=== PATIENT | female | born 1985 | race Caucasian/White ===

== ENCOUNTER 2016-03-10 18:32 | Emergency (ER) | payer OTHER ==
[2016-03-10 20:40] VITALS: BP 138/80
[2016-03-10] MEDS ORDERED: Naproxen TAB* 250 MG PO ONE (21:29)
[2016-03-10] MEDS ORDERED: oxyCODONE/Acetamin 5/325 MG* TAB PO ONE (21:30)
[2016-03-10] MEDS ORDERED: Ondansetron INJ* 2 MG/ML VIAL IV ONE (21:47)
[2016-03-10] MEDS ORDERED: Famotidine IV* 10 MG/ML 2 ML (20 mg) IV ONE (21:47)
[2016-03-10] MEDS ORDERED: NS 0.9% 1000 ML* 2,000 ML IV ONE (21:47)
--- NOTE | 2016-03-12 19:22 | ED ---
Lower Extremity - HPI Summary HPI Summary: Patient presents to ED with complaint of bruising to her buttocks after falling on a stair last evening. She is walking OK and able to bear weight. She comes in today because the bruising had spread, and she wants to make sure nothing more concerning is going on. She states she may have twisted her ankle as well. Denies LOC. Denies hitting her head. Denies any light headedness prior to the fall and states the stairs were slippery. - History of Current Complaint Chief Complaint: EDGeneral Stated Complaint: FALL/HIP AND ANKLE PAIN Time Seen by Provider: 03/10/16 21:13 Hx Obtained From: Patient Hx Last Menstrual Period: 05/25/14 Onset of Pain: Immediate Onset/Duration: Minutes Severity Initially: Moderate Severity Currently: Moderate Pain Intensity: 5 Pain Scale Used: 0-10 Numeric Timing: Constant Location: Is Discrete @ - L buttocks Character Of Pain: Dull, Aching Associated Signs And Symptoms: Positive: Bruising Aggravating Factor(s): Standing Alleviating Factor(s): Rest Able to Bear Weight: Yes - Risk Factors Gout Risk Factors: Negative DVT Risk Factors: Negative Septic Arthritis Risk Factor: Negative - Allergies/Home Medications Allergies/Adverse Reactions: Allergies Allergy/AdvReac Type Severity Reaction Status Date / Time Amoxicillin Allergy Severe Hives Verified 03/10/16 18:44 Sulfa Antibiotics Allergy Unknown See Comment Verified 03/10/16 18:44 PMH/Surg Hx/FS Hx/Imm Hx Previously Healthy: Yes Endocrine/Hematology History: Reports: Hx Thyroid Disease Cardiovascular History: Denies: Hx Congenital Heart Disease, Hx Congestive Heart Failure, Hx Rheumatic Fever, Hx Valvular Heart Disease Respiratory History: Denies: Hx Asthma, Hx Pulmonary Edema History: Reports: Other Problems/Disorders - HERPES- LAST OUTBREAK 5 YRS; heart shaped uterus Neurological History: Reports: Hx Seizures - Surgical History Surgery Procedure, Year, and Place: vulvodynia surgery 2009 Infectious Disease History: No Infectious Disease History: Denies: Hx Clostridium Difficile, Hx Hepatitis, Hx Human Immunodeficiency Virus (HIV), Hx of Known/Suspected MRSA, Hx Shingles, Hx Tuberculosis, Hx Known/ Suspected VRE, Hx Known/Suspected VRSA, History Other Infectious Disease, Traveled Outside the [place] in Last 30 Days - Family History Known Family History: Positive: None - Social History Occupation: Unemployed Lives: With Family Alcohol Use: None Substance Use Type: Reports: None Smoking Status (MU): Former Smoker Type: Cigarettes Amount Used/How Often: 1/2 ppd Length of Time of Smoking/Using Tobacco: 10 years Have You Smoked in the Last Year: No Review of Systems Constitutional: Negative Eyes: Negative Cardiovascular: Negative Respiratory: Negative Positive: Arthralgia, Myalgia Positive: Bruising - over L buttocks Neurological: Negative Psychological: Normal All Other Systems Reviewed And Are Negative: Yes Physical Exam Triage Information Reviewed: Yes Vital Signs On Initial Exam: Initial Vitals Temp Pulse Resp BP Pulse Ox 98.9 F 92 18 149/81 98 03/10/16 18:44 03/10/16 18:44 03/10/16 18:44 03/10/16 18:44 03/10/16 18:44 Vital Signs Reviewed: Yes Appearance: Positive: Well-Appearing, No Pain Distress, Well-Nourished Skin: Positive: Warm, Skin Color Reflects Adequate Perfusion, Other - echymossis over L buttocks Head/Face: Positive: Normal Head/Face Inspection Eyes: Positive: Normal, EOMI, DEWAYNE Neck: Positive: Supple, Nontender Respiratory/Lung Sounds: Positive: Clear to Auscultation Cardiovascular: Positive: Normal, Pulses are Symmetrical in both Upper and Lower Extremities Musculoskeletal: Positive: Normal, Strength/ROM Intact Neurological: Positive: Normal, Sensory/Motor Intact, Normal Gait, Speech Normal Psychiatric: Positive: Normal AVPU Assessment: Alert Diagnostics - Vital Signs Vital Signs Temp Pulse Resp BP Pulse Ox 03/10/16 20:40 98.1 F 91 18 138/80 100 03/10/16 18:44 98.9 F 92 18 149/81 98 - Laboratory Lab Statement: Any lab studies that have been ordered have been reviewed, and results considered in the medical decision making process. Lower Extremity Course/Dx - Course Course Of Treatment: Patient with normal gait. Pain when ambulating which is discrete at L buttocks. No midline spine tenderness, no tailbone pain. Patient dc'd home with return precautions and some pain management. - Diagnoses Differential Diagnosis/HQI/PQRI: Positive: Contusion, Sprain, Strain Provider Diagnoses: Contusion Discharge - Discharge Plan Condition: Stable Disposition: HOME Prescriptions: Ibuprofen TAB* [Motrin TAB* 800 MG] 800 mg PO Q6H #20 tab oxyCODONE/Acetamin 5/325 MG* [Percocet 5/325 TAB*] 1 tab PO Q4H PRN #15 tab MDD 6 PRN Reason: Pain Patient Education Materials: Oxycodone/Acetaminophen (By mouth), Contusion in Adults (ED) Referrals: No Primary Care Phys,NOPCP [Primary Care Provider] - Additional Instructions: Take Oxycodone and Motrin on opposite schedules for relief of pain and inflammation. warm heat pads to the bottom area will help heal the area and promote blood flow. ice to the ankle will help with inflammation. Images - Images Full Body (No Head): 1 - ecchymosis
== END 2016-03-10 22:05 | disposition home or self-care (01) ==
LOC: ED 18:32
DX: S30.0XXA Contusion of lower back and pelvis, initial encounter (principal); W19.XXXA Unspecified fall, initial encounter; Y92.9 Unspecified place or not applicable; Z87.891 Personal history of nicotine dependence; Z88.0 Allergy status to penicillin; Z88.2 Allergy status to sulfonamides
CPT/HCPCS: 99282; A9270-GY

== ENCOUNTER 2016-10-25 14:57 | Inpatient (IN) | payer OTHER ==
[2016-10-25 15:52] LABS: Urine Bilirubin Negative (Negative); Urine Glucose Negative (Negative); Urine Nitrite Negative (Negative)
[2016-10-25 16:13] LABS: ROM Internal QC QC Line Present
[2016-10-25 17:10] LABS: Hematocrit 35 % (35-47); Hemoglobin 12.1 g/dl (12.0-16.0); Mean Corpuscular HGB Conc 35 g/dl (31-36); Mean Corpuscular Hemoglobin 32 pg (27-31); Mean Corpuscular Volume 93 fL (80-97); Mean Platelet Volume 8 um3 (7.4-10.4); Red Blood Count 3.76 10^6/ul (4.0-5.4); Red Cell Distribution Width 13 % (10.5-15); White Blood Count 12.8 10^3/ul (3.5-10.8)
[2016-10-25] MEDS ORDERED: Azithromycin TAB* 250 MG PO ONE (17:24)
[2016-10-25] MEDS ORDERED: Betamethasone INJ* 6 MG/ML 5 ML VIAL (30 MG) ONE (17:35)
--- NOTE | 2016-10-25 18:00 | RAD ---
INDICATION: Limited evaluation. Premature rupture of membranes. Assess CÉSAR and weight. COMPARISON: September 26, 2014 TECHNIQUE/FINDINGS: Limited transabdominal imaging shows a single intrauterine gestation in breech presentation with the head to the left. There is movement and there is confirmation of cardiac activity of 132 beats for minute. The amniotic fluid index measures 6.5. The cervix is closed measuring 4.7 cm. The estimated gestational age based on biparietal diameter, head circumference, abdominal circumference, and femur length corresponds to 30 weeks 1 day, 32 weeks 0 day, 29 weeks 5 days, and 33 weeks 2 days resulting a composite value of 31 weeks 2 days. The weight is 3 lbs. 12 oz. IMPRESSION: INTRAUTERINE GESTATION WITH CONFIRMATION OF CARDIAC ACTIVITY AND WITH ESTIMATED AGE OF 31 WEEKS 2 DAYS. THE ESTIMATED WEIGHT IS 3 LBS. 12 OZ. THE AMNIOTIC FLUID INDEX MEASURES 6.5.
[2016-10-25] MEDS: ValACYclovir (*) 500 MG TAB PO SCH (18:25)
[2016-10-25] MEDS: ceFAZolin 1 GM VIAL(*) 1 GM in NS 0.9% 50 ML* 50 ML IVPB SCH (18:25)
[2016-10-25] MEDS: Betamethasone INJ* 6 MG/ML 5 ML VIAL (30 MG) IM SCH (19:37)
[2016-10-26] MEDS ORDERED: ceFAZolin 1 GM VIAL(*) ONE (02:27)
[2016-10-26] MEDS: ceFAZolin 1 GM VIAL(*) 1 GM in NS 0.9% 50 ML* 50 ML IVPB SCH ×3 (02:34→18:24)
[2016-10-26] MEDS ORDERED: Acetaminophen TAB* 325 MG ONE (07:32)
[2016-10-26] MEDS: [UNRECOGNIZED DRUG - OTHER] PO SCH (09:00)
[2016-10-26] MEDS ORDERED: Influenza VAC *QUAD* 2017-18* 0.5 ML SYRINGE IM ONE (09:00)
[2016-10-26] MEDS: PRENATAL VIT PO SCH (09:00)
[2016-10-26] MEDS: ValACYclovir (*) 500 MG TAB PO SCH (17:41)
[2016-10-26] MEDS: Betamethasone INJ* 6 MG/ML 5 ML VIAL (30 MG) IM SCH (17:42)
[2016-10-27] MEDS: ceFAZolin 1 GM VIAL(*) 1 GM in NS 0.9% 50 ML* 50 ML IVPB SCH ×2 (02:34→10:15)
[2016-10-27] MEDS: Acetaminophen TAB* 325 MG PO PRN (08:10)
[2016-10-27] MEDS: [UNRECOGNIZED DRUG - OTHER] PO SCH (08:11)
[2016-10-27] MEDS: PRENATAL VIT PO SCH (08:11)
[2016-10-27] MEDS: ValACYclovir (*) 500 MG TAB PO SCH (10:16)
[2016-10-27] MEDS: Cephalexin CAP* 500 MG PO SCH (18:06)
[2016-10-28] MEDS: Cephalexin CAP* 500 MG PO SCH ×4 (00:06→18:56)
[2016-10-28] MEDS: Acetaminophen TAB* 325 MG PO PRN ×2 (07:36→19:56)
[2016-10-28] MEDS: ValACYclovir (*) 500 MG TAB PO SCH (08:49)
[2016-10-28] MEDS: PRENATAL VIT PO SCH (13:16)
[2016-10-28] MEDS: [UNRECOGNIZED DRUG - OTHER] PO SCH (13:16)
[2016-10-28 14:30] LABS: Hematocrit 34 % (35-47); Hemoglobin 11.5 g/dl (12.0-16.0); Mean Corpuscular HGB Conc 34 g/dl (31-36); Mean Corpuscular Hemoglobin 32 pg (27-31); Mean Corpuscular Volume 93 fL (80-97); Mean Platelet Volume 8 um3 (7.4-10.4); Red Blood Count 3.64 10^6/ul (4.0-5.4); Red Cell Distribution Width 13 % (10.5-15); White Blood Count 11.7 10^3/ul (3.5-10.8)
[2016-10-29] MEDS: Cephalexin CAP* 500 MG PO SCH ×4 (00:27→17:56)
[2016-10-29] MEDS: ValACYclovir (*) 500 MG TAB PO SCH (08:59)
[2016-10-29] MEDS: PRENATAL VIT PO SCH (09:00)
[2016-10-29] MEDS: [UNRECOGNIZED DRUG - OTHER] PO SCH (09:00)
[2016-10-29] MEDS: Acetaminophen TAB* 325 MG PO PRN (09:33)
--- NOTE | 2016-10-29 12:12 | RAD ---
Indication: Amniotic fluid leak. Real-time sonography of the was performed. There is a single intrauterine gestation in breech presentation. Anterior placenta is noted. No placenta previa is noted. heart activity is noted at 153 bpm. The amniotic fluid is decreased with an amniotic fluid index of 3.5. There is funneling of the cervix with fluid in the endocervical canal. breathing and movement is noted. No tone is noted. Low amniotic fluid is noted. This gives a biophysical profile of 4 out of 8. Interrogation of the umbilical artery demonstrates resistive index measuring up to 3.6. IMPRESSION: Biophysical profile of 4 out of 8. Amniotic fluid index is 3.5. Umbilical artery Doppler demonstrates mildly elevated resistive index of 3.6 however persistent diastolic flow is noted. There is breech presentation. No evidence of placenta previa.
[2016-10-30] MEDS ORDERED: Cephalexin CAP* 500 MG PO ONE (01:00)
[2016-10-30] MEDS ORDERED: ceFOXitin 2 GM IVPREMIX* 2 GM/50 ML BAG IVPB ONE (06:00)
[2016-10-30] MEDS: ValACYclovir (*) 500 MG TAB PO SCH (09:00)
[2016-10-30] MEDS: PRENATAL VIT PO SCH (09:00)
[2016-10-30] MEDS: [UNRECOGNIZED DRUG - OTHER] PO SCH (09:00)
[2016-10-30] MEDS ORDERED: Carboprost Tromethamine* 250 MCG INJ ONE (10:22)
[2016-10-30] MEDS ORDERED: Sodium Citrate/Citric Acid* 15 ML UDC ONE (10:25)
[2016-10-30] MEDS ORDERED: OXYTOCIN* 10 UNITS/ML 1 ML VIAL ONE (11:53)
[2016-10-30] MEDS ORDERED: Phenylephrine IV* 40 MCG/ML 10 ML SYRINGE ONE (11:53)
[2016-10-30] MEDS ORDERED: Morphine PF AMP (0.5MG/ML)* 5 MG/10 ML AMP ONE (11:53)
[2016-10-30] MEDS ORDERED: Cephalexin CAP* 500 MG PO SCH (12:00)
[2016-10-30] MEDS ORDERED: fentaNYL* 50 MCG/ML 2 ML VIAL (100 MCG VIAL) IV PRN (12:29)
[2016-10-30] MEDS ORDERED: Ondansetron INJ* 2 MG/ML VIAL IV PRN ×2 (12:29→12:33)
[2016-10-30] MEDS ORDERED: Naloxone* 0.4 MG/ML 1 ML VIAL IV PRN (12:33)
[2016-10-30] MEDS ORDERED: oxyCODONE/Acetamin 5/325 MG* TAB PO PRN ×2 (12:33)
[2016-10-30] MEDS ORDERED: fentaNYL* 50 MCG/ML 2 ML VIAL (100 MCG VIAL) ONE ×2 (12:45→13:20)
[2016-10-30] MEDS ORDERED: Ondansetron INJ* 2 MG/ML VIAL ONE (12:48)
[2016-10-30] MEDS ORDERED: Witch Hazel PAD* JAR TOPICAL PRN (13:42)
[2016-10-30] MEDS ORDERED: Carboprost Tromethamine* 250 MCG INJ IM ONE (13:42)
[2016-10-30] MEDS ORDERED: Dibucaine 1% 28.35 GM TUBE PR PRN (13:42)
[2016-10-30] MEDS ORDERED: Glycerin ADULT SUPP PR PRN (13:42)
[2016-10-30] MEDS ORDERED: Acetaminophen TAB* 325 MG PO PRN (13:42)
[2016-10-30] MEDS ORDERED: Oxytocin in LR* 20 UNITS/1,000 ML BAG IVPB SCH (14:00)
[2016-10-30] MEDS: diPHENhydraMINE IV* 50 MG/ML 1 ml VIAL (BENADRYL) IV PRN (14:24)
[2016-10-30] MEDS: Ketorolac INJ* 30 MG/ML 1 ML VIAL IV PRN ×2 (16:44→23:15)
[2016-10-30] MEDS: Docusate CAP* 100 MG PO SCH ×2 (18:59→23:10)
[2016-10-30] MEDS: Simethicone TAB* 80 MG TAB.CHEW PO SCH (23:10)
--- NOTE | 2016-10-31 02:39 | OP ---
OPERATIVE REPORT: DATE OF SURGERY: 10/30/16 DATE OF : 81 SURGEON: Radha Lockett MD SURVEILLANCE SENSOR OFFICER: Donna Banerjee MD ANESTHESIOLOGIST: Dr. Krause. ANESTHESIA: Spinal. PRE-OP DIAGNOSIS: Intrauterine at 35-1/7 weeks, breech presentation, prolonged premature rupture of membranes, intrauterine growth restriction with abnormal systolic/diastolic ratio. POST-OP DIAGNOSIS: Intrauterine at 35-1/7 weeks, breech presentation , prolonged premature rupture of membranes, intrauterine growth restriction with abnormal systolic/diastolic ratio. OPERATIVE PROCEDURE: Primary low transverse section. ESTIMATED BLOOD LOSS: 600 cc. URINE OUTPUT: 650 cc of clear yellow urine. FLUIDS: 1900 cc of crystalloid. FINDINGS: Revealed a female . Apgars 9 at 1 minute, 9 at 5 minutes. Weight was 4 pounds 9 ounces. Ava breech, right sacrum anterior. No meconium. Normal appearing tubes and ovaries bilaterally. Bicornuate uterus, placenta densely adherent to fundal and posterior uterine wall, sent to Pathology, 3-vessel cord. COMPLICATIONS: None apparent. DISPOSITION: Stable to recovery room. DESCRIPTION OF PROCEDURE: The patient was placed in dorsal lithotomy position. The abdomen was prepped and draped in a sterile standard fashion. The patient was identified with universal protocol for correct position, patient, and procedure. Anesthesia was tested to appropriate level. Two fingerbreadths above the pubic symphysis, an incision was made. This was carried down through to the fascia. Fascia was scored in the midline, extended laterally and superiorly using curved Marquez scissors. The fascia was superiorly and inferiorly from the rectus muscle with blunt and sharp dissection. The peritoneum was then entered with blunt dissection. The peritoneal incision was extended bluntly. The bladder blade was inserted. The lower uterine segment was identified, tented up with Allis. The incision was made with a scalpel. This was carried down through to membranes. The incision was extended laterally and superiorly using bandage scissors. There was a small pocket of clear fluid noted. The baby was then delivered ava breech, right sacrum anterior, right and left shoulder delivered, head delivered spontaneously. The cord was around the body. The cord was then milked and then the cord was clamped and cut and the was handed off to the awaiting lamp tester and inspector. Appropriate cord blood was then obtained. The placenta was then extracted and noted to be densely adherent to the fundus of the uterus, but did deliver with manipulation. The uterine cavity was then swabbed and noted to be free of any retained placental tissue. Hemabate was injected 250 mcg into the base of the myometrium. The uterine incision itself was then reapproximated in 2 layers, first layer running lock and the second layer running imbricated, a second suture 0 Vicryl was placed in a [id number] for hemostasis on the right lateral edge of the hysterotomy site. The uterus was noted be bicornuate in nature and tubes and ovaries were noted to have a normal appearance. The uterus was returned intraabdominally. Colic gutters were lavaged. Hysterotomy site was visualized and noted to be hemostatic. The peritoneum was reapproximated with 3-0 Vicryl x1. The subfascial area was lavaged, hemostasis was assured and the fascia itself was then reapproximated using 0 Vicryl x2 in a running fashion. The subcutaneous tissue was lavaged. Hemostasis was assured with Bovie coagulation and a subcu fat stitch was placed using 3-0 Polysorb in interrupted fashion. The skin was then reapproximated using 4-0 Monocryl in a subcuticular fashion. All sponge, needle, instruments, and blade counts were correct throughout the case. The patient tolerated the procedure well and went to recovery room in stable condition. [id number]/[facility] #: [id number] DANYELLE
[2016-10-31] MEDS: diPHENhydraMINE IV* 50 MG/ML 1 ml VIAL (BENADRYL) IV PRN (03:28)
[2016-10-31] MEDS: Simethicone TAB* 80 MG TAB.CHEW PO SCH ×5 (04:01→21:32)
[2016-10-31 07:28] LABS: Hematocrit 30 % (35-47); Hemoglobin 10.2 g/dl (12.0-16.0); Mean Corpuscular HGB Conc 34 g/dl (31-36); Mean Corpuscular Hemoglobin 32 pg (27-31); Mean Corpuscular Volume 93 fL (80-97); Mean Platelet Volume 8 um3 (7.4-10.4); Red Blood Count 3.21 10^6/ul (4.0-5.4); Red Cell Distribution Width 13 % (10.5-15); White Blood Count 11.4 10^3/ul (3.5-10.8)
[2016-10-31] MEDS ORDERED: Ibuprofen TAB* 600 MG ONE (08:56)
[2016-10-31] MEDS: oxyCODONE/Acetamin 5/325 MG* TAB PO PRN ×4 (08:59→21:32)
[2016-10-31] MEDS: PRENATAL VIT PO SCH (09:00)
[2016-10-31] MEDS ORDERED: Ferrous Gluconate TAB* 324 MG TAB PO SCH (09:00)
[2016-10-31] MEDS: [UNRECOGNIZED DRUG - OTHER] PO SCH (09:00)
[2016-10-31] MEDS: Ketorolac INJ* 30 MG/ML 1 ML VIAL IV PRN (09:01)
[2016-10-31] MEDS: Docusate CAP* 100 MG PO SCH ×3 (09:01→21:32)
[2016-10-31] MEDS: ValACYclovir (*) 500 MG TAB PO SCH (10:15)
[2016-10-31] MEDS: Ibuprofen TAB* 600 MG PO PRN ×2 (15:15→21:32)
[2016-11-01] MEDS: Ibuprofen TAB* 600 MG PO PRN ×3 (05:41→18:19)
[2016-11-01] MEDS: oxyCODONE/Acetamin 5/325 MG* TAB PO PRN ×5 (05:42→23:20)
[2016-11-01] MEDS: [UNRECOGNIZED DRUG - OTHER] PO SCH (09:00)
[2016-11-01] MEDS: PRENATAL VIT PO SCH (09:00)
[2016-11-01] MEDS: Docusate CAP* 100 MG PO SCH ×3 (09:51→23:20)
[2016-11-01] MEDS: Simethicone TAB* 80 MG TAB.CHEW PO SCH ×4 (09:51→23:20)
[2016-11-01] MEDS: ValACYclovir (*) 500 MG TAB PO SCH (12:18)
[2016-11-02] MEDS: Ibuprofen TAB* 600 MG PO PRN ×3 (00:02→12:35)
[2016-11-02] MEDS: oxyCODONE/Acetamin 5/325 MG* TAB PO PRN ×2 (06:32→11:50)
[2016-11-02] MEDS: Simethicone TAB* 80 MG TAB.CHEW PO SCH ×2 (08:59→12:35)
[2016-11-02] MEDS: Docusate CAP* 100 MG PO SCH (08:59)
[2016-11-02] MEDS: PRENATAL VIT PO SCH (09:00)
[2016-11-02] MEDS: [UNRECOGNIZED DRUG - OTHER] PO SCH (09:00)
[2016-11-02] MEDS: ValACYclovir (*) 500 MG TAB PO SCH ×2 (09:00)
[2016-11-02 10:54] VITALS: BP 136/93
== END 2016-11-02 13:49 | disposition home or self-care (01) | DRG 540 ==
LOC: MCHOBOUT 14:57 → MCHOB 16:34
PROVIDERS: ADMIT Obstetrics & Gynecology; ATTEND Obstetrics & Gynecology
PROC: 4A1HXCZ Monitoring of Products of Conception, Cardiac Rate, External Approach (ICD-10-PCS; 2016-10-30)
PROC: 10D00Z1 Extraction of Products of Conception, Low, Open Approach (ICD-10-PCS; principal; 2016-10-30 11:58)
PROC: 3E0234Z Introduction of Serum, Toxoid and Vaccine into Muscle, Percutaneous Approach (ICD-10-PCS; 2016-11-02)
DX: O32.1XX0 Maternal care for breech presentation, not applicable or unspecified (principal); O60.14X0 Preterm labor third trimester with preterm delivery third trimester, not applicable or unspecified; O42.113 Preterm premature rupture of membranes, onset of labor more than 24 hours following rupture, third trimester; O34.03 Maternal care for unspecified congenital malformation of uterus, third trimester; O36.5930 Maternal care for other known or suspected poor fetal growth, third trimester, not applicable or unspecified; O69.89X0 Labor and delivery complicated by other cord complications, not applicable or unspecified; Z23 Encounter for immunization; Q51.3 Bicornate uterus; Z88.0 Allergy status to penicillin; Z88.2 Allergy status to sulfonamides; Z3A.35 35 weeks gestation of pregnancy; Z37.0 Single live birth
CPT/HCPCS: 36415; 76815; 76819; 81003; 84112; 85025; 85027; 86850; 86900; 86901; 86922; 88307; 90686; A9270-GY; J0690; J0694; J0702; J1200; J1885; J2405; J2590; J3010

== ENCOUNTER 2017-01-18 14:15 | Day surgery (SDC) | payer OTHER ==
[~2017-01-18 14:15] MED LIST: Buffered Lidocaine 0.9% SYRIN* 5 ML/SYR SYRINGE INTRADERM ONE; Famotidine TAB* 20 MG PO ONE; Ibuprofen TAB* 400 MG PO ONE; Metoclopramide TAB* 10 MG PO ONE; Scopolamine 1.5 mg* PATCH TRANSDERM ONE; Sodium Citrate/Citric Acid* 15 ML UDC PO ONE
[2017-01-18 15:34] LABS: Hematocrit 38 % (35-47); Hemoglobin 12.8 g/dl (12.0-16.0); Mean Corpuscular HGB Conc 34 g/dl (31-36); Mean Corpuscular Hemoglobin 30 pg (27-31); Mean Corpuscular Volume 89 fL (80-97); Mean Platelet Volume 7 um3 (7.4-10.4); Red Blood Count 4.24 10^6/ul (4.0-5.4); Red Cell Distribution Width 13 % (10.5-15); White Blood Count 6.3 10^3/ul (3.5-10.8)
[2017-01-18] MEDS ORDERED: Ibuprofen TAB* 400 MG ONE (16:23)
[2017-01-18] MEDS ORDERED: Scopolamine 1.5 mg* PATCH ONE (16:24)
[2017-01-18] MEDS ORDERED: Metoclopramide TAB* 10 MG ONE (16:24)
[2017-01-18] MEDS ORDERED: Famotidine TAB* 20 MG ONE (16:24)
[2017-01-18] MEDS ORDERED: Sodium Citrate/Citric Acid* 15 ML UDC ONE (16:29)
[2017-01-18] MEDS ORDERED: Bupivacaine 0.25% SDV* 30 ML ONE (16:49)
[2017-01-18] MEDS ORDERED: ceFOXitin 2 GM IVPREMIX* 2 GM/50 ML BAG ONE (16:58)
[2017-01-18] MEDS ORDERED: Atracurium* 10 MG/ML 10 ML VIAL ONE (17:14)
[2017-01-18] MEDS ORDERED: fentaNYL* 50 MCG/ML 2 ML VIAL (100 MCG VIAL) ONE ×2 (17:14→18:00)
[2017-01-18] MEDS ORDERED: Lidocaine 2% PF * 5 ML VIAL ONE (17:15)
[2017-01-18] MEDS ORDERED: Propofol* 10 MG/ML 20 ML BTL IV PUSH ONE (17:15)
[2017-01-18] MEDS ORDERED: Ondansetron INJ* 2 MG/ML VIAL IV PRN (17:49)
[2017-01-18] MEDS ORDERED: Ketorolac INJ* 30 MG/ML 1 ML VIAL IV PRN (17:49)
[2017-01-18] MEDS ORDERED: DiMENhydriNATE IV* 50 MG/ML VIAL IV PUSH PRN (17:49)
[2017-01-18] MEDS ORDERED: fentaNYL* 50 MCG/ML 2 ML VIAL (100 MCG VIAL) IV PRN (17:49)
--- NOTE | 2017-01-18 18:35 | PN ---
Progress Note - Progress Note Date of Service: 01/18/17 Note: Brief Operative Note: Pre-op: Chronic calculous cholecystitis Post-op: Same Procedure: Laparoscopic cholecystectomy with bilateral tubal ligation Surgeon: Dr. Levy Lanier Risk Control Manager: RONI Gupta Anaesthesia: GETA EBL: <50 cc Fluids: LR 1000 cc Drains: None Catheter: Mims to gravity, d/c'ed at PACU Specimen: Gallbladder Findings: See dictated op note
[2017-01-18] MEDS ORDERED: Ketorolac INJ* 30 MG/ML 1 ML VIAL ONE (19:12)
[2017-01-18 19:35] VITALS: BP 120/72
[2017-01-18] MEDS ORDERED: Ondansetron INJ* 2 MG/ML VIAL ONE (20:07)
--- NOTE | 2017-01-19 04:23 | OP ---
CC: Radha Lockett MD; RONI Andrews * DATE OF OPERATION: 01/18/17 - [facility] DATE OF : 81 SURGEON: Jose Bonds MD MILL OPERATOR: RONI Juan CO-SURGEON: Radha Lockett MD ANESTHESIOLOGIST: Ubaldo Erazo MD ANESTHESIA: General endotracheal. PRE-OP DIAGNOSIS: Symptomatic cholelithiasis. POST-OP DIAGNOSIS: Symptomatic cholelithiasis. OPERATIVE PROCEDURE: Laparoscopic cholecystectomy. ESTIMATED BLOOD LOSS: Less than 50 mL. IV FLUIDS: 1 L of crystalloid. SPECIMEN: Gallbladder. DRAINS: None. COMPLICATIONS: None. COUNTS: Instrument, needle, and sponge counts were correct. DESCRIPTION OF PROCEDURE: The patient was brought to the operating room and placed on the table supine. General anesthesia was administered. She was positioned in modified lithotomy. She received appropriate intravenous antibiotics. She was prepped and draped in usual sterile fashion and time-out was performed. Entry into the abdomen was through a transumbilical vertical incision using an open technique. After accessing the peritoneal cavity, a 5-mm optical trocar was placed and carbon dioxide to a pressure of 15 mmHg. Under direct visualization, 5-mm trocars were placed in the subxiphoid position and two in the right upper quadrant. The initial umbilical trocar was exchanged for a 12- mm trocar. The liver appeared to be slight fatty infiltrated. The gallbladder appeared to be without any acute changes, but did have some adhesions of the infundibulum to the area of the duodenum. The fundus was grasped and retracted superiorly and the adhesions were taken down sharply. Dissection was performed on medial and lateral aspects of the gallbladder over the area of the infundibulum, opening the peritoneum and exposing the coarse of the cystic artery and cystic duct. Each structure was bluntly dissected out and after critical view was obtained, the duct was doubly clipped and divided. The cystic artery was also doubly clipped and divided and the gallbladder was freed from attachments to the liver, staying in an avascular plane and with the use of the cautery. After the gallbladder was freed, it was placed into a retrieval bag and retrieved through the umbilical site. A 0 Polysorb stay suture was placed into the fascia at the site and the suture was left and tied and the 12 mm port was replaced. The 5 mm ports were removed and the wounds were closed at the level of the skin with 4-0 Monocryl and Steri-Strips applied. At this time, the care of the patient was turned over to Dr. Lockett for her portion of the procedure, which was dictated separately. [id number]/[facility] #: [id number] [facility]
--- NOTE | 2017-01-20 00:47 | OP ---
CC: Dr. Bonds * DATE OF OPERATION: 01/18/17 - [facility] DATE OF : [birth year] SURGEON: Radha Lockett MD NOTE: Dr. Bonds was the main surgeon who performed a cholecystectomy; I performed laparoscopic bilateral tubal ligation. ANESTHESIOLOGIST: Ubaldo Erazo MD ANESTHESIA: General endotracheal with local. PRE-OP DIAGNOSIS: Desires permanent sterility. POST-OP DIAGNOSIS: Desires permanent sterility. OPERATIVE PROCEDURE: Laparoscopic bilateral tubal ligation. ESTIMATED BLOOD LOSS: Minimal. URINE OUTPUT: Not recorded. IV FLUIDS: 900 cc. COMPLICATIONS: None apparent. DISPOSITION: Stable to recovery room. DESCRIPTION OF PROCEDURE: The patient was placed in [facility] , identified with universal protocol. A sterile speculum was inserted in the vagina and a single-tooth tenaculum placed on the anterior lip of the cervix and a Hulka clamp was then placed, single-tooth tenaculum removed, sterile speculum removed. The laparoscopic portion of the case was carried out by Dr. Bonds; please see that portion of the dictated note. At completion of his case, he placed a 0 Vicryl suture at the umbilicus for closure of the umbilicus at the end of the portion of my procedure of the case. Upon completion of laparoscopic cholecystectomy, an operative scope was placed with Klemark through the umbilical port. There was omental adhesion in the midline; however , the uterus was noted to be free of any omental adhesion. Tubes and ovaries had normal appearance. The appendix was not able to be visualized. The bowel was not involved in any adhesions and had normal appearance. Both fimbriae were identified. The right tube was approached first and Kleppinger was applied for obliteration of approximately 3 cm of the tube. This process was repeated on the left fallopian tube. Upon ablation of the right and left fallopian tubes, the operative scope was removed, the pneumo-peritoneum was released, and the trocar was removed under direct visualization. The fascia was reapproximated with prior placed 0 Vicryl suture. There was a question of defect superior to the suture and a second 0 Vicryl suture was placed for complete approximation of the fascia. The skin was then reapproximated using 4- 0 Monocryl in a subcuticular fashion. Hulka clamp was removed. The patient was extubated and taken to recovery room in stable condition. [id number]/[facility] #: [id number] DANYELLE
[2017-01-21] MEDS ORDERED: Scopolamine PATCH Remove* 1 NOTE MISC PATCH OFF ONE (06:00)
== END 2017-01-18 20:56 | disposition home or self-care (01) ==
LOC: OR 14:15
PROVIDERS: ATTEND Surgery
DX: K80.10 Calculus of gallbladder with chronic cholecystitis without obstruction (principal); Z30.2 Encounter for sterilization; Z87.891 Personal history of nicotine dependence
CPT/HCPCS: 36415; 81025; 85025; 86850; 86900; 86901; 88304; A9270-GY; C1776; J0694; J1885; J2405; J2704; J3010

== ENCOUNTER 2018-06-06 14:47 | Emergency (ER) | payer OTHER ==
--- NOTE | 2018-06-06 17:57 | ED ---
Laceration/Wound HPI - HPI Summary HPI Summary: 33-year-old female presents with right pinky laceration yesterday. she states has been over 24 hours since got the laceration. She was walking last night and she stubbed her toe and cut her foot. no actively bleeding. States she put some bandage on the wound. [facility] seen at [facility] and had x-rays which were negative. She was told that wound could not be closed. States she is allergic to all antibiotics. No fevers or chills. no spreading redness. - History of Current Complaint Stated Complaint: TOE LAC ON RT FOOT PER PT Time Seen by Provider: 06/06/18 17:28 Hx Last Menstrual Period: 05/25/14 Pain Intensity: 10 - Allergy/Home Medications Allergies/Adverse Reactions: Allergies Allergy/AdvReac Type Severity Reaction Status Date / Time MS Amoxicillin [Amoxicillin] Allergy Severe Hives Verified 01/18/17 15:26 MS Sulfa Antibiotics Allergy Unknown See Comment Verified 01/18/17 15:26 [Sulfa Antibiotics] mold Allergy Unknown Verified 06/06/18 14:54 Reaction Details antihistamines Allergy Swelling Uncoded 06/06/18 14:54 Of Face,Lips,& Throat Home Medications: Home Medications NK [No Home Medications Reported] 06/06/18 [History Confirmed 06/06/18] PMH/Surg Hx/FS Hx/Imm Hx Endocrine/Hematology History: Reports: Hx Anemia - anemic tendencies Denies: Hx Thyroid Disease Cardiovascular History: Denies: Hx Congenital Heart Disease, Hx Congestive Heart Failure, Hx Rheumatic Fever, Hx Valvular Heart Disease, Other Cardiovascular Problems/ Disorders Respiratory History: Denies: Hx Asthma, Hx Pulmonary Edema, Other Respiratory Problems/Disorders GI History: Reports: Hx Irritable Bowel Denies: Other GI Disorders History: Reports: Other Problems/Disorders - HERPES- LAST OUTBREAK 5 YRS; heart shaped uterus Musculoskeletal History: Reports: Hx Tendonitis - carpal tunnel bilat, Other Musculoskeletal History - pinched nerve in back and neck, shoulders Sensory History: Reports: Hx Contacts or Glasses - glasses Denies: Hx Hearing Aid Opthamlomology History: Reports: Hx Contacts or Glasses - glasses Neurological History: Reports: Hx Headaches - tension, Hx Nerve Disease - PINCHED NERVE IN BACK AND NECK, Hx Seizures - UNSPECIFIED - NO SEIZURES IN A LONG TIME, NO MEDS, Other Neuro Impairments/Disorders - ptsd Psychiatric History: Reports: Hx Anxiety - ptsd, Hx Depression - ptsd - Cancer History Hx Chemotherapy: No - Surgical History Surgery Procedure, Year, and Place: vulvodynia surgery 2009, [facility]. c- section 10/2016, [facility] Hx Anesthesia Reactions: No Infectious Disease History: No Infectious Disease History: Denies: Hx Clostridium Difficile, Hx Hepatitis, Hx Human Immunodeficiency Virus (HIV), Hx of Known/Suspected MRSA, Hx Shingles, Hx Tuberculosis, Hx Known/ Suspected VRE, Hx Known/Suspected VRSA, History Other Infectious Disease, Traveled Outside the [place] in Last 30 Days - Family History Known Family History: Positive: None - Social History Alcohol Use: None Substance Use Type: Reports: None Smoking Status (MU): Former Smoker Type: Cigarettes Amount Used/How Often: smoked 10 years 1 ppd Length of Time of Smoking/Using Tobacco: 10 years Have You Smoked in the Last Year: No Review of Systems Negative: Fever Negative: Chest Pain Negative: Shortness Of Breath Positive: Myalgia - right pinky finger laceration All Other Systems Reviewed And Are Negative: Yes Physical Exam Triage Information Reviewed: Yes Vital Signs On Initial Exam: Initial Vitals Temp Pulse Resp BP Pulse Ox 98.4 F 103 20 138/83 98 06/06/18 14:50 06/06/18 14:50 06/06/18 14:50 06/06/18 14:50 06/06/18 14:50 Vital Signs Reviewed: Yes Appearance: Positive: Well-Appearing Skin: Positive: Other - 1 1/2cm by 1/2cm laceration to right pinky Head/Face: Positive: Normal Head/Face Inspection Eyes: Positive: Normal, Conjunctiva Clear ENT: Positive: Pharynx normal Respiratory/Lung Sounds: Positive: Clear to Auscultation, Breath Sounds Present Cardiovascular: Positive: Normal, RRR Musculoskeletal: Positive: Strength/ROM Intact - right foot, Other - good pulses Neurological: Positive: Normal Psychiatric: Positive: Normal Diagnostics - Vital Signs Vital Signs Temp Pulse Resp BP Pulse Ox 06/06/18 14:50 98.4 F 103 20 138/83 98 - Laboratory Lab Statement: Any lab studies that have been ordered have been reviewed, and results considered in the medical decision making process. Laceration Repair Course/Dx - Course Course Of Treatment: 33-year-old female presents with right pinky laceration yesterday. she states has been over 24 hours since got the laceration. She was walking last night and she stubbed her toe and cut her foot. no actively bleeding. States she put some bandage on the wound. [facility] at [facility] and had x-rays which were negative. She was told that wound could not be closed. States she is allergic to all antibiotics. No fevers or chills. no spreading redness. On exam has one and half centimeter by half cm laceration to right pinky toe. Discussed cannot close as has been over 24 hours since cut the wound. Clean area extensively. wanted to place on antibiotic but patient declined at this time. Warned if any signs of infection to return told to keep area clean with soap and water. Patient understands agrees with plan. - Differential Dx Differental Diagnoses: Abrasion, Avulsion, Laceration - Clinical Impression Provider Diagnoses: Laceration of toe, right Discharge - Sign-Out/Discharge Documenting (check all that apply): Patient Departure Patient Received Moderate/Deep Sedation with Procedure: No - Discharge Plan Condition: Good Disposition: HOME Patient Education Materials: Laceration Without Closure (ED) Referrals: Jimenez Corley NP [Primary Care Provider] - Additional Instructions: wash twice a day mayuri tape toes together follow up with primary within 5 days Return to ED if develop signs of infection such as fever, spreading redness, or pus. - Billing Disposition and Condition Condition: GOOD Disposition: Home
[2018-06-06 18:16] VITALS: BP 129/77
== END 2018-06-06 18:15 | disposition home or self-care (01) ==
LOC: ED 14:47
DX: S91.114A Laceration without foreign body of right lesser toe(s) without damage to nail, initial encounter (principal); W22.03XA Walked into furniture, initial encounter; Y92.019 Unspecified place in single-family (private) house as the place of occurrence of the external cause; D64.9 Anemia, unspecified; Z88.2 Allergy status to sulfonamides; Z87.891 Personal history of nicotine dependence; Z88.1 Allergy status to other antibiotic agents
CPT/HCPCS: 99282

== ENCOUNTER 2018-10-16 12:54 | Emergency (ER) | payer OTHER ==
[2018-10-16] MEDS ORDERED: Famotidine IV* 10 MG/ML 2 ML (20 mg) IV SLOW PU ONE (13:05)
--- NOTE | 2018-10-16 13:07 | ED ---
Allergic Reaction/Systemic - HPI Summary HPI Summary: Patient is a 33 year old F arriving via ambulance to [facility] with a chief complaint of diffuse urticaria, facial swelling, and myalgia since an allergic reaction that started yesterday 10/15/18 PM which has worsened since today 10/16/18 AM. Patient states she does not know what caused the allergic reaction. The patient rates the pain 0/10 in severity. Symptoms aggravated by nothing. Symptoms alleviated by 50mg of Benadryl IV given by EMS. - History of Current Complaint Chief Complaint: EDAllergicReaction Hx Obtained From: Patient, EMS Onset/Duration: Started hours ago - 10/15/18 PM, Still Present, Worse Since - AM Timing: Constant, Lasting Hours - since 10/15/18 PM Severity Currently: None Pain Intensity: 0 Pain Scale Used: 0-10 Numeric Location: Diffuse Character: Swelling - facial, Hives Aggravating Factor(s): Nothing Alleviating Factor(s): Antihistamines - Benadryl 50 mg IV - Allergies/Home Medications Allergies/Adverse Reactions: Allergies Allergy/AdvReac Type Severity Reaction Status Date / Time amoxicillin Allergy Severe Hives Verified 10/16/18 13:28 Sulfa (Sulfonamide Allergy Severe Swelling Verified 10/16/18 13:28 Antibiotics) mold Allergy Unknown Verified 06/06/18 14:54 Reaction Details antihistamines Allergy Swelling Uncoded 06/06/18 14:54 Of Face,Lips,& Throat PMH/Surg Hx/FS Hx/Imm Hx Endocrine/Hematology History: Reports: Hx Anemia - anemic tendencies Denies: Hx Thyroid Disease Cardiovascular History: Denies: Hx Congenital Heart Disease, Hx Congestive Heart Failure, Hx Rheumatic Fever, Hx Valvular Heart Disease, Other Cardiovascular Problems/ Disorders Respiratory History: Denies: Hx Asthma, Hx Pulmonary Edema, Other Respiratory Problems/Disorders GI History: Reports: Hx Irritable Bowel Denies: Other GI Disorders History: Reports: Other Problems/Disorders - HERPES- LAST OUTBREAK 5 YRS; heart shaped uterus Musculoskeletal History: Reports: Hx Tendonitis - carpal tunnel bilat, Other Musculoskeletal History - pinched nerve in back and neck, shoulders Sensory History: Reports: Hx Contacts or Glasses - glasses Denies: Hx Hearing Aid Opthamlomology History: Reports: Hx Contacts or Glasses - glasses Neurological History: Reports: Hx Headaches - tension, Hx Nerve Disease - 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 [place] [facility] [place] Anesthesia Reactions: No Infectious Disease History: No Infectious Disease History: Denies: Hx Clostridium Difficile, Hx Hepatitis, Hx Human Immunodeficiency Virus (HIV), Hx of Known/Suspected MRSA, Hx Shingles, Hx Tuberculosis, Hx Known/ Suspected VRE, Hx Known/Suspected VRSA, History Other Infectious Disease, Traveled Outside the [place] in Last 30 Days - Family History Known Family History: Positive: Other - EtOH abuse - Social History Alcohol Use: None Hx Substance Use: No Substance Use Type: Reports: None Hx Tobacco Use: Yes Smoking Status (MU): Former Smoker Type: Cigarettes Amount Used/How Often: smoked 10 years 1 ppd Have You Chewed or Dipped Tobacco in the LAST YEAR: No Length of Time of Smoking/Using Tobacco: 10 years Have You Smoked in the Last Year: No Review of Systems Positive: Other - facial swelling Positive: Myalgia Positive: Other - urticaria All Other Systems Reviewed And Are Negative: Yes Physical Exam - Summary Physical Exam Summary: Appearance: The patient is well-nourished in no acute distress and in no acute pain. Skin: The skin is warm and dry and skin has diffuse urticaria. HEENT: The head has periorbital facial swelling and is atraumatic. The pupils are equal and reactive. The conjunctivae are clear and without drainage. Nares are patent and without drainage. Mouth reveals moist mucous membranes and the throat is without erythema and exudate. The external ears are intact. The ear canals are patent and without drainage. The tympanic membranes are intact. Neck: The neck is supple with full range of motion and non-tender. There are no carotid bruits. There is no neck vein distension. Respiratory: Chest is non-tender. Lungs are clear to auscultation and breath sounds are symmetrical and equal. Cardiovascular: Heart is regular rate and rhythm. There is no murmur or rub auscultated. There is no peripheral edema and pulses are symmetrical and equal. Abdomen: The abdomen is soft and non-tender. There are normal bowel sounds heard in all four quadrants and there is no organomegaly palpated. Musculoskeletal: There is no back tenderness noted. Extremities are non-tender with full range of motion. There is good capillary refill. There is no peripheral edema or calf tenderness elicited. Neurological: Patient is alert and oriented to person, place and time. The patient has symmetrical motor strength in all four extremities. Cranial nerves are grossly intact. Deep tendon reflexes are symmetrical and equal in all four extremities. Triage Information Reviewed: Yes Vital Signs On Initial Exam: Initial Vitals Temp Pulse Resp BP Pulse Ox 99.2 F 96 22 138/103 96 10/16/18 12:55 10/16/18 12:55 10/16/18 12:55 10/16/18 12:55 10/16/18 12:55 Vital Signs Reviewed: Yes Diagnostics - Vital Signs Vital Signs Temp Pulse Resp BP Pulse Ox 10/16/18 12:55 99.2 F 96 22 138/103 96 - Laboratory Lab Statement: Any lab studies that have been ordered have been reviewed, and results considered in the medical decision making process. Re-Evaluation - Re-Evaluation 1337 Re-Evaluation Time: 13:37 Change: Worse Comment: RN states that patient had an episode of bloody diarrhea Second Eval Re-Evaluation Time: 13:44 Change: Worse Comment: RN reports that patient is vomiting. Will administer Zofran. Allergic Reaction Course/Dx - Course Course Of Treatment: Ms. Leal presented with an obvious allergic reaction. She had urticaria all over and some facial swelling mostly periorbital. Posterior pharynx, lips and tongue were all fine and her lungs were clear. She would not tolerate epinephrine she's had bad reactions in the past. She got steroids and Benadryl in the ambulance therefore I gave her Pepcid and observed her for a couple of hours. She did improve slowly. I talked to her about being admitted because of the limitations of medication she could have and she preferred to go home she felt that she would be fine. Does have EpiPen although she will not use it. - Diagnoses Provider Diagnoses: Allergic reaction Discharge ED - Sign-Out/Discharge Documenting (check all that apply): Patient Departure - discharge Patient Received Moderate/Deep Sedation with Procedure: No - Discharge Plan Condition: Stable Disposition: HOME Patient Education Materials: General Allergic Reaction (ED) Referrals: Jimenez Corley, [facility] [Primary Care Provider] - 3 Days Additional Instructions: Follow up with primary care provider within 2 to 3 days. Return to Emergency Department for new or worsening symptoms. - Billing Disposition and Condition Condition: STABLE Disposition: Home - Attestation Statements Document Initiated by Scribe: Yes Documenting Scribe: Ivette Silverman Provider For Whom Scribe is Documenting (Include Credential): Bello Dickey MD Scribe Attestation: Ivette Velasquez scribed for Bello Dickey MD on 10/16/18 at 1835. Scribe Documentation Reviewed: Yes Provider Attestation: The documentation as recorded by the Ivette nina accurately reflects the service I personally performed and the decisions made by Bello jose MD Status of Scribe Document: Viewed
[2018-10-16] MEDS ORDERED: Ondansetron INJ* 2 MG/ML VIAL IV ONE (13:45)
[2018-10-16 17:21] VITALS: BP 129/83
== END 2018-10-16 17:21 | disposition home or self-care (01) ==
LOC: ED 12:54
DX: T78.40XA Allergy, unspecified, initial encounter (principal); X58.XXXA Exposure to other specified factors, initial encounter; Y92.9 Unspecified place or not applicable; D64.9 Anemia, unspecified; F41.9 Anxiety disorder, unspecified; F32.9 Major depressive disorder, single episode, unspecified; F43.10 Post-traumatic stress disorder, unspecified; Z87.891 Personal history of nicotine dependence; Z88.1 Allergy status to other antibiotic agents; Z88.2 Allergy status to sulfonamides; Z88.8 Allergy status to other drugs, medicaments and biological substances
CPT/HCPCS: 96374; 96375; 99283; J2405